=== PATIENT | male | born 1940 | race Caucasian/White ===

== ENCOUNTER 2021-02-15 08:43 | Outpatient (CLI) | payer OTHER, SELFPAY ==
--- NOTE | 2021-02-15 18:11 | P.PCNPFT_ITS ---
PFT Interpretation This is a pulmonary function test with pre and post-bronchodilator spirometry, plethysmography and diffusing capacity. The test was performed and results interpreted in accordance with the 2019 and 2005 ATS/ERS Task Force guidelines respectively using the Global Lung Function Initiative-2012 reference equations. Patient demonstrated good effort and c ooperation. Reproducibility criteria were not met for pre-bronchodilator maneuvers. The quality of the pre bronchodilator spirometry maneuver was Grade E and post bronchodilator spirometry maneuver was Grade B. Findings: Spirometry: There is decreased maximal expiratory airflow at all lung volumes to concave expiratory flow tracing. The pre bronchodilator spirometry was not reproducible. The pre bronchodilator FVC was 1.47 L, 46% predicted. The pre bronchodilator FEV1 is 0.55, 23% predicted. The FEV1: FVC ratio is 37%. The post bronchodilator FVC is 1.87 L, representing a 27% increase. The post bronchodilator FEV1 is 1.48 L, representing a 171% increase. The Post bronchodilator FEV1: FVC ratio 79%. Plethysmography: The total lung capacity is 3.00 L, 50% predicted. The funct ional residual capacity is 1.86 L, 59% predicted. The residual volume is 1.16 L, 49% predicted. Diffusing capacity: The absolute diffusion capacity is 10.2, 47% predicted. The diffusing capacity corrected for alveolar volume is 5.22, 132% predicted. Impression: The pre bronchodilator spirometry was not reproducible and the overall impression is therefore made using the post bronchodilator spirometry. There is a combined obstructive and restrictive ventilatory abnormality. There are no guidelines to assign the severity of obstruction and restriction with a combined abnormality. In my opinion, given the mildly concave expiratory flow tracing and mildly decreased FEV1:FVC ratio and moderate restrictive abnormality, I would state there is a mild obstructive abnormality and a mode rate restrictive abnormality resulting in a moderately decreased post bronchodilator FEV1. The diffusing capacity is moderately decreased but normalizes when corrected for alveolar volume. There are no prior studies for comparison
--- NOTE | 2021-02-15 18:23 | WPDSIXMINUTE ---
Six Minute Walk This is a 6 minutes walk test. The test was performed and interpreted in accordance with the 2014 ERS/ATS task force guidelines. Findings: The patient's resting room air oxygen saturation measured by pulse oximetry was 93% and her heart rate was 67 bpm. Patient ambulated for 137 meters and oxygen saturation remained 92 to 95%. Heart rate at the end of the study was 73 bpm. There are no prior studies for comparison.
== END 2021-02-15 08:44 | disposition home or self-care (01) ==
PROVIDERS: PCP Internal Medicine; Visit Provider Nurse Practitioner Family
DX: J84.9 Interstitial pulmonary disease, unspecified (principal); R06.02 Shortness of breath; R94.2 Abnormal results of pulmonary function studies
CPT/HCPCS: 94060; 94618; 94726; 94729